=== PATIENT | female | born 1935 | race Caucasian/White ===

== ENCOUNTER 2024-11-14 11:39 | Emergency (ER) | payer MEDICARE ==
[2024-11-14] VITALS (7 sets, daily range): BP systolic 136–156; BP diastolic 49–75
[~2024-11-14] VITALS: Ht 170.2 cm; Wt 75.0 kg
[2024-11-14] MEDS ORDERED: IBUPROFEN 200 MG/TAB PO ONE (12:00)
[2024-11-14] MEDS ORDERED: TRAMADOL HYDROC50 M1 PO (12:59)
== END 2024-11-14 13:56 | disposition home or self-care (01) ==
LOC: ED 11:39
DX: S42.212A Unspecified displaced fracture of surgical neck of left humerus, initial encounter for closed fracture (principal); S50.812A Abrasion of left forearm, initial encounter; S80.212A Abrasion, left knee, initial encounter; M54.2 Cervicalgia; I10 Essential (primary) hypertension; W17.89XA Other fall from one level to another, initial encounter; Y92.009 Unspecified place in unspecified non-institutional (private) residence as the place of occurrence of the external cause